=== PATIENT | female | born 1935 | race Caucasian/White ===

== ENCOUNTER → 2017-05-22 14:02 | Outpatient (CLI) | payer MEDICARE ==
[2016-09-06 06:15] VITALS: BMI 25.2
[~2017-05-22 14:02] MED LIST: ANASTROZOLE1 MG PO; CO Q-10100 MG PO; COMPAZINE10 MG PO; HYDROCODON-ACE1 EAC7 PO; OMEPRAZOLE40 MG PO; PRAVASTATIN SOD10 MG PO; TOPROL XL25 MG PO; VALIUM5 MG PO
== END | disposition home or self-care (01) ==
LOC: D.MRI 14:00
DX: M51.36 Other intervertebral disc degeneration, lumbar region (principal)

== ENCOUNTER → 2017-10-30 13:40 | Outpatient (CLI) | payer MEDICARE ==
[2016-09-06 06:15] VITALS: BMI 25.2
== END | disposition home or self-care (01) ==
LOC: D.RAD 10:00
DX: R05 Cough (principal)